=== PATIENT | female | born 1940 | race Caucasian/White ===

== ENCOUNTER 2017-12-07 16:51 | Emergency (ER) | payer OTHER, MEDICARE ==
[~2017-12-07] VITALS: Ht 157.5 cm; Wt 59.0 kg
[~2017-12-07 16:51] MED LIST: CALCIUM500 M1 PO; COMPAZINE10 M1 PO; DONEPEZIL HCL5 MG PO; GOLYTELY PACKE1 EACH PO; MIRALAX17 G1 PO; OMEPRAZOLE40 M1 PO; PREVACID30 M1 PO; VENLAFAXINE HC150 MG PO; VENLAFAXINE HCL75 M1 PO; VITAMIN B-121000 MC3 PO; VITAMIN D2000 UNIT PO
--- NOTE | 2017-12-07 20:00 | ED GENERAL ADULT ---
History of Present Illness General Chief Complaint: Fever Stated Complaint: FEVER,NAUSEA Vital Signs & Intake/Output Vital Signs & Intake/Output Vital Signs Date Time Temp Pulse Resp B/P B/P Pulse O2 O2 Flow FiO2 Mean Ox Delivery Rate 12/07 2005 Room Air 12/07 1659 97.5 80 18 151/80 96 Room Air Allergies Coded Allergies: Iodine and Iodide Containing Produc (PROFUSE N/V/D 11/26/17) shellfish derived (PROFUSE N/V/D 11/26/17) Reconcile Medications Calcium Carbonate (Calcium) 500 MG CALCIUM (1,250 MG) TABLET 2 TAB PO DAILY SUPPLEMENT (Reported) Cholecalciferol (Vitamin D3) (Vitamin D) 2,000 UNIT CAPSULE 1 CAP PO DAILY SUPPLEMENT (Reported) Cyanocobalamin (Vitamin B-12) 1,000 MCG TABLET 1 TAB PO DAILY SUPPLEMENT ( Reported) Donepezil HCl 5 MG TABLET 1 TAB PO QPM MEMORY (Reported) Lansoprazole (Prevacid) (Unknown Strength) CAPSULE.DR (Unknown Dose) PO PRN BREAKTHROUGH INDIGESTION (Reported) Omeprazole 40 MG CAPSULE.DR 1 CAP PO DAILY GI (Reported) Polyethylene Glycol 3350 (Miralax) 17 GRAM POWD.PACK 1 PAC PO DAILY GI ( Reported) dissolve in water Prochlorperazine Maleate (Compazine) 10 MG TABLET 1 TAB PO TID PRN NAUSEA Venlafaxine HCl (Venlafaxine HCl ER) 150 MG CAP.ER.24H 1 CAP PO DAILY MENTAL HEALTH (Reported) Venlafaxine HCl (Venlafaxine HCl ER) 75 MG CAP.ER.24H 1 CAP PO DAILY MENTAL HEALTH (Reported) Triage Note: PT TO ER WITH NEICE C/C N/V X 1 DAY. HX OF PANCREATITIS 2 WEEKS AGO. 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/Reproductive: NONE Surgical History Surgical History: non-contributory Psychosocial History What is your primary language Burmese Tobacco Use: Quit >30 days ago Progress Plan of Care: Orders Procedure Date/time Status LACTIC ACID 12/07 2310 Active PARTIAL THROMBOPLASTIN TIME 12/07 2009 Active PROTHROMBIN TIME 12/07 2009 Active LIPASE 12/07 2009 Active LACTIC ACID 12/07 2009 Active COMPREHENSIVE METABOLIC PANEL 12/07 2009 Active CBC WITHOUT DIFFERENTIAL 12/07 2009 Active URINALYSIS 12/07 1706 Complete Current Medications Sig/Tapan Start time Last Medication Dose Stop Time Status Admin Ondansetron HCl 4 MG ONCE ONE 12/07 2014 UNVr (Zofran) 12/07 2015 Sodium Chloride 1,000 ML BOLUS ONE 12/07 2014 UNVr (Normal Saline 0.9%) 12/074 Laboratory Tests 12/07/17 1705: Urine Color YEL, Urine Clarity HAZY H, Urine pH 7.0, Ur Specific [place] 1.020, Urine Protein NEG, Urine Ketones TRACE H, Urine Nitrite NEG, Urine Bilirubin NEG, Urine Urobilinogen 0.2, Ur Leukocyte Esterase NEG, Ur Microscopic SEDIMENT EXAMINED, Urine RBC 1-3, Urine WBC RARE, Ur Epithelial Cells MOD H, Urine Bacteria FEW H, Urine Mucus FEW, Urine Hemoglobin NEG, Urine Glucose NEG Departure Departure Condition: Stable Referrals: Ena Michelle MD (PCP/Family) Departure Forms: Customer Survey General Discharge Information
--- NOTE | 2017-12-07 20:11 | ED GI/GU/ABDOMINAL COMPLAINT ---
History of Present Illness General Chief Complaint: Fever Stated Complaint: FEVER,NAUSEA Source: patient, family, old records Exam Limitations: dementia (mild), poor historian Vital Signs & Intake/Output Vital Signs & Intake/Output Vital Signs Date Time Temp Pulse Resp B/P B/P Pulse O2 O2 Flow FiO2 Mean Ox Delivery Rate 12/07 2334 97.9 70 14 160/72 97 Room Air 12/07 2207 97.5 67 18 152/70 95 Room Air 12/07 2046 98.4 67 15 136/66 94 Room Air 12/07 2006 Room Air 12/07 1659 97.5 80 18 151/80 96 Room Air ED Intake and Output 12/08 0000 12/07 1200 Intake Total Output Total Balance Patient 130 lb Weight Weight Reported by Patient Measurement Method Allergies Coded Allergies: Iodine and Iodide Containing Produc (PROFUSE N/V/D 11/26/17) shellfish derived (PROFUSE N/V/D 11/26/17) Reconcile Medications Calcium Carbonate (Calcium) 500 MG CALCIUM (1,250 MG) TABLET 2 TAB PO DAILY SUPPLEMENT (Reported) Cholecalciferol (Vitamin D3) (Vitamin D) 2,000 UNIT CAPSULE 1 CAP PO DAILY SUPPLEMENT (Reported) Cyanocobalamin (Vitamin B-12) 1,000 MCG TABLET 1 TAB PO DAILY SUPPLEMENT ( Reported) Donepezil HCl 5 MG TABLET 1 TAB PO QPM MEMORY (Reported) Lansoprazole (Prevacid) (Unknown Strength) CAPSULE.DR (Unknown Dose) PO PRN BREAKTHROUGH INDIGESTION (Reported) Omeprazole 40 MG CAPSULE.DR 1 CAP PO DAILY GI (Reported) Polyethylene Glycol 3350 (Miralax) 17 GRAM POWD.PACK 1 PAC PO DAILY GI ( Reported) dissolve in water Prochlorperazine Maleate (Compazine) 10 MG TABLET 1 TAB PO TID PRN NAUSEA Venlafaxine HCl (Venlafaxine HCl ER) 150 MG CAP.ER.24H 1 CAP PO DAILY MENTAL HEALTH (Reported) Venlafaxine HCl (Venlafaxine HCl ER) 75 MG CAP.ER.24H 1 CAP PO DAILY MENTAL HEALTH (Reported) Triage Note: PT TO ER WITH NEICE C/C N/V X 1 DAY. HX OF PANCREATITIS 2 WEEKS AGO. DENIES URINARY S/S Triage Nurses Notes Reviewed? yes ? N Is pt currently ? No Onset: Abrupt Duration: day(s): (1) Timing: multiple episodes today Activities at Onset: none Prior Abdominal Problems: similar symptoms Modifying Factors: Worsens With: eating. Associated Symptoms: nausea/vomiting HPI: This is a 69-year-old female with history of dementia of unknown origin presents to the ER with her niece for chief complaint of nausea, vomiting, lack of appetite and weakness. She was seen here in the ER last week diagnosed with mild pancreatitis and gallstones. She was sent home and follow-up with Dr. Michelle who arranged an outpatient visit with Rosanne from GI. Patient was found to be feeling weak and hypothermic per her niece who is also a nurse. Initial temp was 91.9 and rechecked at 94.1. She said she vomited twice that appeared to be bilious. No black or bloody vomit. She denies any abdominal pain or back pain. She states that she only toast this morning and had one glass of water and a cup of coffee. Most of the history is obtained from the niece as patient is a poor historian at this point. No diarrhea. She denies any abdominal pain today. Complains of mild persistent nausea although she was given one dose of compazine prior to arrival. Past History Travel History Traveled to [place] past 21 day No Medical History Any Pertinent Medical History? 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 No Review of Systems Review of Systems Constitutional: Denies: chills, fever. EENTM: Reports: no symptoms. Respiratory: Denies: cough, short of breath. Cardiovascular: Denies: chest pain, palpitations. GI: Reports: nausea, vomiting. Denies: abdominal pain, diarrhea. Genitourinary: Denies: discharge, dysuria. Musculoskeletal: Denies: back pain. Skin: Reports: no symptoms. Neurological/Psychological: Reports: no symptoms. Hematologic/Endocrine: Denies: bruising, bleeding, polyuria, polydipsia. Immunologic/Allergic: Denies: splenectomy. All Other Systems: Reviewed and Negative Physical Exam Physical Exam General Appearance: well developed/nourished, alert, awake, mild distress Head: atraumatic, normal appearance Eyes: Bilateral: normal appearance, PERRL, EOMI. Ears, Nose, Throat, Mouth: hearing grossly normal, moist mucous membrane Neck: normal inspection, supple, full range of motion Respiratory: normal breath sounds, chest non-tender, no respiratory distress Cardiovascular: regular rate/rhythm, normal peripheral pulses Gastrointestinal: normal bowel sounds, soft, non-tender, NONTENDER, NO REBOUND OR GUARDING Extremities: normal range of motion Neurologic/Psych: no motor/sensory deficits, awake, alert, oriented x 3, normal gait Skin: intact, normal color, warm/dry Core Measures ACS in differential dx? No Sepsis Present: No Sepsis Focused Exam Completed? No Progress Differential Diagnosis: DEHYDRATION, LEXUS, RECURRENT PANCREATITIS, CHOLELITHIASIS , VIRAL GASTROENTERITIS Plan of Care: Orders Procedure Date/time Status EKG 12/07 2023 Active PARTIAL THROMBOPLASTIN TIME 12/07 2009 Complete PROTHROMBIN TIME 12/07 2009 Complete LIPASE 12/07 2009 Complete LACTIC ACID 12/07 2009 Complete COMPREHENSIVE METABOLIC PANEL 12/07 2009 Complete CBC WITHOUT DIFFERENTIAL 12/07 2009 Complete URINALYSIS 12/07 1705 Complete Laboratory Tests 12/07/17 2310: Lactic Acid Cancelled 12/07/172054: Anion Gap 13, Estimated GFR > 60, BUN/Creatinine Ratio 30.0 H, Glucose 102 H, Lactic Acid 1.2, Calcium 8.5, Total Bilirubin 0.3, AST 18, ALT 36, Alkaline Phosphatase 90, Total Protein 6.2 L, Albumin 3.6, Globulin 2.6, Albumin/ Globulin Ratio 1.4, Lipase 178, PT 12.4, INR 1.18, APTT 30, CBC w Diff NO MAN DIFF REQ, RBC 4.47, MCV 83.4, MCH 26.9 L, RDW 14.6 H, MPV 7.9, Gran % 86.1 H, Lymphocytes % 10.6 L, Monocytes % 3.1, Eosinophils % 0, Basophils % 0.2, Absolute Granulocytes 6.1, Absolute Lymphocytes 0.8 L, Absolute Monocytes 0.2, Absolute Eosinophils 0, Absolute Basophils 0, PUBS MCHC 32.3 L 12/07/17 1705: Urine Color YEL, Urine Clarity HAZY H, Urine pH 7.0, Ur Specific [place] 1.020, Urine Protein NEG, Urine Ketones TRACE H, Urine Nitrite NEG, Urine Bilirubin NEG, Urine Urobilinogen 0.2, Ur Leukocyte Esterase NEG, Ur Microscopic SEDIMENT EXAMINED, Urine RBC 1-3, Urine WBC RARE, Ur Epithelial Cells MOD H, Urine Bacteria FEW H, Urine Mucus FEW, Urine Hemoglobin NEG, Urine Glucose NEG 10:10 PM ELEVATED BUN/CRE RATIO. SECOND L IV FLUIDS ORDERED. LFT'S, LIPASE WNL. WILL TRIAL PO CHALLENGE. 10:55 NO VOMITING IN ED. LABS WNL. PATIENT REPORTS FEELING BETTER AFTER IV FLUIDS. REPEAT ABDOMINAL EXAMINATION SOFT NONTENDER. NIECE WILL STAY WITH HER FOR THE NEXT FEW DAYS AND MONITOR HER. TOLD TO RETURN IF WORSE. NO INDICATION FOR REPEAT IMAGING OF HER ABDOMEN AT THIS TIME. NO RUQ OR EPIGASTRIC PAIN. TOLERATING PO FLUIDS WELL. Initial ED EKG: LBBB Prior EKG: unchanged Departure Departure Disposition: HOME OR SELF CARE Condition: Stable Clinical Impression Primary Impression: Nausea and vomiting Referrals: Miguel Angel IVY,Ena (PCP/Family) Additional Instructions: CLEAR LIQUID DIET AND ADVANCE TOLERATED CONTINUE THE COMPAZINE NEEDED FOR NAUSEA FOLLOW UP WITH YOUR OUTPATIENT GASTROENTEROLOGY APPOINTMENT Departure Forms: Customer Survey General Discharge Information
[2017-12-07 21:12] LABS: ABSOLUTE BASOPHIL COUNT 0 /CUMM (0.0-0.2); ABSOLUTE EOSINOPHIL COUNT 0 /CUMM (0.0-0.7); ABSOLUTE GRANULOCYTE CT 6.1 /CUMM (1.4-6.5); ABSOLUTE MONOCYTE COUNT 0.2 /CUMM (0.10-0.60); BASOPHIL % 0.2 % (0.0-2.0); EOSINOPHIL % 0 % (0-5); GRANULOCYTE % 86.1 % (42.2-75.2); HEMATOCRIT 37.3 % (37-47); MEAN CORPUSCULAR HGB 26.9 PG (27.0-31.0); MEAN CORPUSCULAR HGB CONC 32.3 G/DL (33.0-37.0); MEAN CORPUSCULAR VOLUME 83.4 FL (81.0-99.0); MEAN PLATELET VOLUME 7.9 FL (7.4-10.4); PLATELET COUNT 217 /CUMM (130-400); RBC DISTRIBUTION WIDTH 14.6 % (11.5-14.5); RED BLOOD CELL CT 4.47 /CUMM (4.20-5.40); WHITE BLOOD CELL COUNT 7.1 /CUMM (4.8-10.8)
[2017-12-07 21:13] LABS: ABSOLUTE LYMPH COUNT 0.8 /CUMM (1.2-3.4)
[2017-12-07 21:20] LABS: PT 12.4 SEC (9.4-12.5); PTT 30 SEC (25-37)
[2017-12-07 23:34] VITALS: BP 160/72
== END 2017-12-07 23:35 ==
LOC: ERH 16:51
PROVIDERS: Emergency Medicine
DX: R11.2 Nausea with vomiting, unspecified (principal)
CPT/HCPCS: 81001; 93005; 93010; 96361; 96374; J2405

== ENCOUNTER 2018-07-06 12:14 | Emergency (ER) | payer OTHER, MEDICARE ==
[~2018-07-06] VITALS: Ht 157.5 cm; Wt 57.6 kg
[~2018-07-06 12:14] MED LIST changes: +ARICEPT10 M1 PO; -DONEPEZIL HCL5 MG PO
[2018-07-06] MEDS ORDERED: CLARITIN10 M1 PO (13:06)
[2018-07-06 13:07] LABS: ABSOLUTE BASOPHIL COUNT 0 /CUMM (0.0-0.2); ABSOLUTE EOSINOPHIL COUNT 0 /CUMM (0.0-0.7); ABSOLUTE GRANULOCYTE CT 4.3 /CUMM (1.4-6.5); ABSOLUTE LYMPH COUNT 0.9 /CUMM (1.2-3.4); ABSOLUTE MONOCYTE COUNT 0.3 /CUMM (0.10-0.60); BASOPHIL % 0.1 % (0.0-2.0); EOSINOPHIL % 0.7 % (0-5); HEMATOCRIT 42.1 % (37-47); MEAN CORPUSCULAR HGB 28.8 PG (27.0-31.0); MEAN CORPUSCULAR HGB CONC 33.5 G/DL (33.0-37.0); MEAN CORPUSCULAR VOLUME 86.2 FL (81.0-99.0); MEAN PLATELET VOLUME 8.3 FL (7.4-10.4); PLATELET COUNT 206 /CUMM (130-400); RED BLOOD CELL CT 4.88 /CUMM (4.20-5.40); WHITE BLOOD CELL COUNT 5.6 /CUMM (4.8-10.8)
--- NOTE | 2018-07-06 13:38 | ED PSYCHIATRIC COMPLAINT ---
History of Present Illness General Chief Complaint: Psychiatric Related Complaint Stated Complaint: DEPRESSION,ANXIETY,AGREESIVE Source: patient, family Exam Limitations: no limitations Vital Signs & Intake/Output Vital Signs & Intake/Output Vital Signs Date Time Temp Pulse Resp B/P B/P Pulse O2 O2 Flow FiO2 Mean Ox Delivery Rate 07/07 1023 68 18 158/98 98 07/07 0819 98.4 76 18 120/78 99 07/07 0553 98.2 65 18 152/67 98 Room Air 07/07 0402 96.5 71 18 131/67 97 Room Air 07/07 0207 98.3 61 18 125/94 97 Room Air 07/06 2319 97.7 70 20 116/59 97 Room Air 07/06 1528 72 16 137/65 98 Room Air 07/06 1527 Room Air 07/06 1221 98.5 101 18 150/70 95 Room Air ED Intake and Output 07/07 0000 07/06 1200 Intake Total Output Total Balance Patient 127 lb Weight Weight Estimated Measurement Method Allergies Coded Allergies: Iodine and Iodide Containing Produc (PROFUSE N/V/D 11/26/17) shellfish derived (PROFUSE N/V/D 11/26/17) Reconcile Medications Calcium Carbonate (Calcium) 500 MG CALCIUM (1,250 MG) TABLET 2 TAB PO DAILY SUPPLEMENT (Reported) Cholecalciferol (Vitamin D3) (Vitamin D) 2,000 UNIT CAPSULE 1 CAP PO DAILY SUPPLEMENT (Reported) Cyanocobalamin (Vitamin B-12) 1,000 MCG TABLET 1 TAB PO DAILY SUPPLEMENT ( Reported) Donepezil HCl (Aricept) 10 MG TABLET 1 TAB PO QPM DEMENTIA (Reported) Loratadine (Claritin) 10 MG TABLET 1 TAB PO DAILY ALLERGIES (Reported) Omeprazole 40 MG CAPSULE.DR 1 CAP PO DAILY GI (Reported) Venlafaxine HCl (Venlafaxine HCl ER) 150 MG CAP.ER.24H 1 CAP PO DAILY MENTAL HEALTH (Reported) Venlafaxine HCl (Venlafaxine HCl ER) 75 MG CAP.ER.24H 1 CAP PO DAILY MENTAL HEALTH (Reported) Triage Note: RECEIVED 77 YO FEMALE WITH HX OF MIXED DEMENTIA, DEPRESSION AND ANXIETY, FAMILY REPORTS DEPRESSION AND ANXIETY IS GETTING WORSE WITH AGGRESSIVE CONFRONTATIONAL BEHAVIOR. PT VERY AGGRESSIVE TOWARDS FAMILY MEMBERS AND RECENTLY HALLUCINATING. [facility] CALLED AND SAID THEY WANT A FULL WORKUP. PT ALSO EXPRESSED A WISH TO . Triage Nurses Notes Reviewed? yes Onset: Gradual Duration: week(s): Timing: recent history Severity: moderate HPI: 77yo female with hx of anxiety, depression, dementia presents to ED in care of daughter and stefania with concern of suicidal statements. Per stefania the patient has stated she wishes she was twice this week. Patient also has aggressive behavior towards her family members including throwing things and trying to hit them. Patient also displays paranoid behavior including barricading her door with items at night to prevent people from getting in. Family are concerned that the patient hallucinates about seeing people in the front yard that aren't actually there. The patient admits to feeling anxious at times due to living alone however she denies suicidal plan or intent. He denies headache, abdominal pain, vomiting, fevers, dysuria. (Beronica Ko) Past History Travel History Traveled to [place] past 21 day No Medical History Any Pertinent Medical History? 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 No (Beronica Ko) Review of Systems Review of Systems Constitutional: Reports: no symptoms. EENTM: Reports: no symptoms. Respiratory: Reports: no symptoms. Cardiovascular: Reports: no symptoms. GI: Reports: no symptoms. Genitourinary: Reports: no symptoms. Musculoskeletal: Reports: no symptoms. Skin: Reports: no symptoms. Neurological/Psychological: Reports: see HPI. Hematologic/Endocrine: Reports: no symptoms. Immunologic/Allergic: Reports: no symptoms. All Other Systems: Reviewed and Negative (Beronica Ko) Physical Exam Physical Exam General Appearance: well developed/nourished, no apparent distress, alert, awake Head: atraumatic, normal appearance Eyes: Bilateral: normal appearance, PERRL, EOMI. Ears, Nose, Throat: normal pharynx, hearing grossly normal Neck: normal inspection, supple, full range of motion Respiratory: normal breath sounds, no respiratory distress, lungs clear Cardiovascular: regular rate/rhythm Gastrointestinal: normal bowel sounds, soft, non-tender, no organomegaly Extremities: normal range of motion Neurological/Psychiatric: no motor/sensory deficits, awake, alert, normal mood/ affect, jewel sawyer II-XII nml as tested Appearance/Memory/Insight: denies illness, impaired insight Behavoir/Eye Contact/Speech: cooperative Thoughts/Hallucinations: normal thought pattern, no apparent hallucination Skin: intact, normal color, warm/dry SAD PERSONS SAD PERSONS Response Value Age <19 or >45 years? yes 1 Depression/Hopelessness? yes 2 Rational Thinking Loss? yes 2 Single//? yes 1 Social Support? has support 0 Total 6 SAD PERSONS Done? yes (Jyotsna BUCHANAN,Beronica Yee) Progress Differential Diagnosis: dementia, drug overdose, electrolyte abnormality, encephalitis, urinary tract infection, paranoia, suicidal ideation Plan of Care: Orders Procedure Date/time Status Regular Diet 07/06 D Active Continuous Observation Monitor 07/06 1536 Active ED CRISIS PSYCH CONSULT 07/06 1536 Active Add-on Test (ER Only) 07/06 1338 Active URINE DRUG SCREEN FOR ER ONLY 07/06 1237 Complete URINALYSIS 07/06 1237 Complete ETHANOL 07/06 1237 Complete COMPREHENSIVE METABOLIC PANEL 07/06 1237 Complete CBC WITHOUT DIFFERENTIAL 07/06 1237 Complete Current Medications Sig/Tapan Start time Last Medication Dose Stop Time Status Admin Donepezil HCl 10 MG QPM 07/07 2100 UNVr (Aricept) Omeprazole 40 MG DAILY AC 07/07 0700 UNVr (Prilosec) Laboratory Tests 07/06/18 1305: Urine Opiates Screen < 100, Methadone Screen 48, Barbiturate Screen < 60, Ur Phencyclidine Scrn 6.60, Amphetamines Screen < 100, U Benzodiazepines Scrn < 85, Urine Cocaine Screen < 50, Urine Cannabis Screen < 5.00, Urinalysis HEAVY H, Urine Color YEL, Urine Clarity HAZY H, Urine pH 7.5, Ur Specific [place] 1.015, Urine Protein NEG, Urine Ketones NEG, Urine Nitrite NEG, Urine Bilirubin NEG, Urine Urobilinogen 0.2, Ur Leukocyte Esterase TRACE H, Ur Microscopic SEDIMENT EXAMINED, Urine RBC 1-3, Urine WBC 1-3 H, Ur Epithelial Cells MOD H, Urine Bacteria MOD H, Urine Hemoglobin NEG, Urine Glucose NEG 07/06/18 1258: Anion Gap 9, Estimated GFR > 60, BUN/Creatinine Ratio 20.0, Glucose 138 H, Calcium 9.2, Total Bilirubin 0.3, AST 22, ALT 36, Alkaline Phosphatase 73, Total Protein 6.7, Albumin 3.7, Globulin 3.0, Albumin/Globulin Ratio 1.2, CBC w Diff NO MAN DIFF REQ, RBC 4.88, MCV 86.2, MCH 28.8, MCHC 33.5, RDW 15.0 H, MPV 8.3, Gran % 77.0 H, Lymphocytes % 16.8 L, Monocytes % 5.4, Eosinophils % 0.7, Basophils % 0.1, Absolute Granulocytes 4.3, Absolute Lymphocytes 0.9 L, Absolute Monocytes 0.3, Absolute Eosinophils 0, Absolute Basophils 0, Serum Alcohol < 10.0 Patient's labs and urinalysis are nonactionable. Head CT imaging is stable. She is medically cleared for psychiatric evaluation. Patient seen and evaluated by crisis. Crisis feels patient should be transferred to facility for [facility] however searches pending. Will be hold in emergency department until a bed is located. She was signed out to Dr. Castillo pending bed search. Diagnostic Imaging: Viewed by Me: CT Scan. Discussed w/RAD: CT Scan. Radiology Impression: PATIENT: SARAH ANGELA PRESENT AGE: 77 PATIENT ACCOUNT NO: [id number] : 39 LOCATION: [facility] ORDERING PHYSICIAN: Beronica BUCHANAN SERVICE DATE: 07/06/188 EXAM TYPE: CAT - CT HEAD WO IV CONTRAST EXAMINATION: CT HEAD WITHOUT CONTRAST CLINICAL INFORMATION: Aggression, paranoia, confusion. Rule out mass, lesion, intracranial hemorrhage. COMPARISON: MRI scan of the head dated 07/03/2017. TECHNIQUE: Contiguous axial imaging was performed from the skull base to vertex without intravenous administration of contrast. DLP: 611.63 mGy-cm FINDINGS: There is no evidence of acute intracranial hemorrhage or territorial infarction. No abnormal mass effect or midline shift is seen. Vaz to white matter differentiation is well preserved. No extra-axial fluid collections are identified. The ventricles and sulci are enlarged. There is mild periventricular deep white matter low-attenuation seen, suggesting ischemic small vessel disease. The osseous structures and soft tissues are normal. The mastoid air cells and visualized portions of the paranasal sinuses are well aerated. IMPRESSION: 1. No acute intracranial pathology. 2. Involutional changes and chronic findings of ischemic small vessel disease. DICTATED BY: Cindy Castillo MD DATE/TIME DICTATED:07/06/181509 PRODUCT DISTRIBUTION SPECIALIST:ELISABET DATE/TIME TRANSCRIBED:07/06/181509 CONFIDENTIAL, DO NOT COPY WITHOUT APPROPRIATE AUTHORIZATION. <Electronically signed in Other Vendor System> SIGNED BY: Cindy Castillo MD 07/06/18 1521 Hand-Off Endorsed To: Elpidio Castillo MD Endorsed Time: 2142 Pending: other (Beronica Ko) Hand-Off Endorsed To: Kevin Bond MD Endorsed Time: 699 Pending: other (geripsych placement) (Elpidio Castillo MD) Comments: 07/07/2018 10:49:20 AM patient signed out to me by Dr. Castillo at shift pattern changer. Patient being transferred as an involuntary committal to [facility]. (Kevin Bond MD) Departure Departure Condition: Stable Clinical Impression Primary Impression: Suicidal ideation Secondary Impressions: Paranoia Referrals: Ena Michelle MD (PCP/Family) Departure Forms: Customer Survey General Discharge Information (Beronica Ko) PA/MAINTENANCE ENGINEER OIL FIELD Co-Sign Statement Statement: ED Attending supervision documentation- x I saw and evaluated the patient. I have also reviewed all the pertinent lab results and diagnostic results. I agree with the findings and the plan of care as documented in the PA's/MAINTENANCE ENGINEER OIL FIELD's documentation. [] I have reviewed the ED Record and agree with the PA's/MAINTENANCE ENGINEER OIL FIELD's documentation. [] Additions or exceptions (if any) to the PAs/MAINTENANCE ENGINEER OIL FIELD's note and plan are summarized below: [] (Elpidio Castillo MD) Departure Disposition: [facility] (ACUTE) (Kevin Bond MD)
--- NOTE | 2018-07-06 15:21 | CT SCAN REPORT ---
EXAMINATION: CT HEAD WITHOUT CONTRAST CLINICAL INFORMATION: Aggression, paranoia, confusion. Rule out mass, lesion, intracranial hemorrhage. COMPARISON: MRI scan of the head dated 07/03/2017. TECHNIQUE: Contiguous axial imaging was performed from the skull base to vertex without intravenous administration of contrast. DLP: 611.63 mGy-cm FINDINGS: There is no evidence of acute intracranial hemorrhage or territorial infarction. No abnormal mass effect or midline shift is seen. Vaz to white matter differentiation is well preserved. No extra-axial fluid collections are identified. The ventricles and sulci are enlarged. There is mild periventricular deep white matter low-attenuation seen, suggesting ischemic small vessel disease. The osseous structures and soft tissues are normal. The mastoid air cells and visualized portions of the paranasal sinuses are well aerated. IMPRESSION: 1. No acute intracranial pathology. 2. Involutional changes and chronic findings of ischemic small vessel disease.
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
[2018-07-07 10:23] VITALS: BP 158/98
== END 2018-07-07 12:32 | disposition short-term general hospital (02) ==
LOC: ERH 12:14
PROVIDERS: Physician Assistant
DX: R45.851 Suicidal ideations (principal); F22 Delusional disorders; I44.7 Left bundle-branch block, unspecified; Z87.891 Personal history of nicotine dependence; K21.9 Gastro-esophageal reflux disease without esophagitis
CPT/HCPCS: 80307; 81001; G0463; G0480